=== PATIENT | female | born 1945 | race Caucasian/White ===

== ENCOUNTER 2022-01-01 14:26 | Outpatient (CLI) | payer MEDICARE, OTHER, SELFPAY | END 2022-01-01 14:27 | disposition home or self-care (01) | LOC: WOUND 14:26 | PROVIDERS: PCP Family Medicine; Visit Provider Nurse Practitioner Family | DX: L95.0 Livedoid vasculitis (principal); I87.331 Chronic venous hypertension (idiopathic) with ulcer and inflammation of right lower extremity; L97.815 Non-pressure chronic ulcer of other part of right lower leg with muscle involvement without evidence of necrosis; I87.312 Chronic venous hypertension (idiopathic) with ulcer of left lower extremity; L97.825 Non-pressure chronic ulcer of other part of left lower leg with muscle involvement without evidence of necrosis; L97.529 Non-pressure chronic ulcer of other part of left foot with unspecified severity | CPT/HCPCS: 97597; 97598 ==

== ENCOUNTER 2022-01-09 15:17 | Outpatient (CLI) | payer MEDICARE, OTHER, SELFPAY | END 2022-01-09 15:18 | disposition home or self-care (01) | LOC: WOUND 15:17 | PROVIDERS: PCP Family Medicine; Visit Provider Nurse Practitioner Family | DX: L95.0 Livedoid vasculitis (principal); I87.331 Chronic venous hypertension (idiopathic) with ulcer and inflammation of right lower extremity; L97.815 Non-pressure chronic ulcer of other part of right lower leg with muscle involvement without evidence of necrosis; I87.312 Chronic venous hypertension (idiopathic) with ulcer of left lower extremity; L97.825 Non-pressure chronic ulcer of other part of left lower leg with muscle involvement without evidence of necrosis; L97.529 Non-pressure chronic ulcer of other part of left foot with unspecified severity | CPT/HCPCS: 97597; 97598 ==

== ENCOUNTER 2022-01-14 14:43 | Outpatient (CLI) | payer MEDICARE, OTHER, SELFPAY | END 2022-01-14 14:44 | disposition home or self-care (01) | LOC: WOUND 14:44 | PROVIDERS: PCP Family Medicine; Visit Provider Nurse Practitioner Family | DX: L95.0 Livedoid vasculitis (principal); I87.331 Chronic venous hypertension (idiopathic) with ulcer and inflammation of right lower extremity; L97.815 Non-pressure chronic ulcer of other part of right lower leg with muscle involvement without evidence of necrosis; I87.312 Chronic venous hypertension (idiopathic) with ulcer of left lower extremity; L97.825 Non-pressure chronic ulcer of other part of left lower leg with muscle involvement without evidence of necrosis; L97.529 Non-pressure chronic ulcer of other part of left foot with unspecified severity | CPT/HCPCS: 97597; 97598 ==

== ENCOUNTER 2022-01-21 15:03 | Outpatient (CLI) | payer MEDICARE, OTHER, SELFPAY | END 2022-01-21 15:04 | disposition home or self-care (01) | LOC: WOUND 15:04 | PROVIDERS: PCP Family Medicine; Visit Provider Nurse Practitioner Family | DX: L95.0 Livedoid vasculitis (principal); I87.331 Chronic venous hypertension (idiopathic) with ulcer and inflammation of right lower extremity; I87.312 Chronic venous hypertension (idiopathic) with ulcer of left lower extremity; L97.815 Non-pressure chronic ulcer of other part of right lower leg with muscle involvement without evidence of necrosis; L97.825 Non-pressure chronic ulcer of other part of left lower leg with muscle involvement without evidence of necrosis; L97.319 Non-pressure chronic ulcer of right ankle with unspecified severity; L97.529 Non-pressure chronic ulcer of other part of left foot with unspecified severity | CPT/HCPCS: 11042; 11045; 97597; 97598 ==

== ENCOUNTER 2022-01-28 15:10 | Outpatient (CLI) | payer MEDICARE, OTHER, SELFPAY | END 2022-01-28 15:11 | disposition home or self-care (01) | LOC: WOUND 15:11 | PROVIDERS: PCP Family Medicine; Visit Provider Nurse Practitioner Family | DX: L95.0 Livedoid vasculitis (principal); I87.331 Chronic venous hypertension (idiopathic) with ulcer and inflammation of right lower extremity; L97.815 Non-pressure chronic ulcer of other part of right lower leg with muscle involvement without evidence of necrosis; I87.312 Chronic venous hypertension (idiopathic) with ulcer of left lower extremity; L97.825 Non-pressure chronic ulcer of other part of left lower leg with muscle involvement without evidence of necrosis; L97.529 Non-pressure chronic ulcer of other part of left foot with unspecified severity | CPT/HCPCS: 11042; 11045; 97597; 97598 ==

== ENCOUNTER 2022-02-04 15:04 | Outpatient (CLI) | payer MEDICARE, OTHER, SELFPAY | END 2022-02-04 15:05 | disposition home or self-care (01) | LOC: WOUND 15:04 | PROVIDERS: PCP Family Medicine; Visit Provider Nurse Practitioner Family | DX: L95.0 Livedoid vasculitis (principal); I87.331 Chronic venous hypertension (idiopathic) with ulcer and inflammation of right lower extremity; L97.815 Non-pressure chronic ulcer of other part of right lower leg with muscle involvement without evidence of necrosis; I87.312 Chronic venous hypertension (idiopathic) with ulcer of left lower extremity; L97.825 Non-pressure chronic ulcer of other part of left lower leg with muscle involvement without evidence of necrosis; I83.022 Varicose veins of left lower extremity with ulcer of calf; L97.229 Non-pressure chronic ulcer of left calf with unspecified severity | CPT/HCPCS: 11042; 11045 ==

== ENCOUNTER 2022-02-11 14:56 | Outpatient (CLI) | payer MEDICARE, OTHER, SELFPAY | END 2022-02-11 14:57 | disposition home or self-care (01) | LOC: WOUND 14:57 | PROVIDERS: PCP Family Medicine; Visit Provider Nurse Practitioner Family | DX: L95.0 Livedoid vasculitis (principal); I87.331 Chronic venous hypertension (idiopathic) with ulcer and inflammation of right lower extremity; L97.815 Non-pressure chronic ulcer of other part of right lower leg with muscle involvement without evidence of necrosis; I87.312 Chronic venous hypertension (idiopathic) with ulcer of left lower extremity; L97.825 Non-pressure chronic ulcer of other part of left lower leg with muscle involvement without evidence of necrosis; L97.528 Non-pressure chronic ulcer of other part of left foot with other specified severity | CPT/HCPCS: 97597; 97598 ==

== ENCOUNTER 2022-02-22 18:23 | Emergency (ER) | payer MEDICARE, OTHER, SELFPAY ==
--- NOTE | 2022-02-22 18:30 | CRLHL7_ITS ---
For Patients: As a result of the Century Cures Act, medical imaging exams and procedure reports are released immediately into your electronic medical record. You may view this report before your referring provider. If you have questions, please contact your health care provider. HISTORY: Fall. TECHNIQUE: Noncontrast CT of the cervical spine. COMPARISON: No prior. FINDINGS: There is no acute cervical fracture. There is reversal of the normal cervical doses. Degenerative disc and joint disease present within the cervical spine. No prevertebral soft tissue swelling. - At C1-C2, there are advanced degenerative changes of the articulation of the dens with the anterior arch of C1. At C2-C3, no central canal or foraminal stenosis. At C3-C4, disc-osteophyte complex. Mild ventral thecal sac effacement. Mild right foraminal narrowing. At C4-C5, disc-osteophyte complex. Mild ventral thecal sac effacement. Mild right foraminal narrowing. At C5-C6, disc-osteophyte complex with mild ventral thecal sac effacement. Mild foraminal narrowing. At C6-C7, disc-osteophyte complex. Mild ventral thecal sac effacement. Foramina patent. At C7-T1, no central canal or foraminal stenosis. - Note is made of attenuation of the occipital bone close to the foramen magnum level which may relate to prior craniectomy in that region. IMPRESSION: 1. No acute cervical fracture. 2. Degenerative changes. 3. Mild reversal of the normal cervical lordosis. Dictated by Steve Oquendo MD @ 02/22/2022 7:03:25 PM Please note that all CT scans at this facility use dose modulation, iterative reconstruction, and/or weight-based dosing when appropriate to reduce radiation dose to as low as reasonably achievable. Dictated by: Steve Oquendo MD @ 02/22/2022 19:03:32 (Electronically Signed)
--- NOTE | 2022-02-22 18:30 | CRLHL7_ITS ---
For Patients: As a result of the Century Cures Act, medical imaging exams and procedure reports are released immediately into your electronic medical record. You may view this report before your referring provider. If you have questions, please contact your health care provider. INDICATION: Fall.. TECHNIQUE: CT Head without contrast. COMPARISON: None. FINDINGS: CSF spaces: Within normal limits for age. Brain parenchyma: The smith-white differentiation is normal. No sign of mass, hemorrhage, or midline shift. Skull base and calvarium: The visualized paranasal sinuses and mastoid air cells are clear. The visualized orbits are grossly unremarkable. No skull fractures. . IMPRESSION: Unremarkable noncontrast head CT. Please note that all CT scans at this facility use dose modulation, iterative reconstruction, and/or weight-based dosing when appropriate to reduce radiation dose to as low as reasonably achievable. Dictated by Saurabh Huntley MD @ 02/22/2022 7:11:28 PM (Electronically Signed)
[2022-02-22 18:34] VITALS: BP 116/59; PULSE 74; RESP 12; TEMP 37.1; O2SAT 98; BMI 35.7
[2022-02-22 19:30] VITALS: BP 99/47; PULSE 70; RESP 14; O2SAT 97
[2022-02-22 20:27] VITALS: BP 103/42; PULSE 89; RESP 12; TEMP 37.1
--- NOTE | 2022-02-22 20:43 | ED_ITS ---
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 She was walking today and tripped on an uneven lump in the grass. She fell and struck the back of her head on the ground. She sustained a laceration. She did not have loss of consciousness. She complains of a mild headache, and pain at the area of the laceration. She does not have neck pain. She denies back pain, chest pain, difficulty breathing. She denies any pain in her arms or legs aside from that associated with her chronic pain. She has been mentating normally. Related Data Home Medications Medication Instructions Recorded Confirmed ergocalciferol (vitamin D2) 1,250 50,000 unit PO .Once Weekly 01/13/22 02/10/22 mcg (50,000 unit) capsule gabapentin 300 mg capsule 600 mg PO TID 01/13/22 02/10/22 gentamicin 0.1 % topical ointment 0.1 topical DAILY 01/13/22 02/10/22 ibuprofen 400 mg tablet 400 - 800 mg PO TID PRN 01/13/22 02/10/22 lidocaine HCl 4 % topical liquid ea topical 01/13/22 02/10/22 roll-on Previous Rx's Medication Instructions Recorded ondansetron HCl 8 mg tablet 8 mg PO TID PRN nausea and 01/31/22 vomiting #90 tabs buprenorphine HCl 2 mg sublingual 2 mg sublingual DAILY #14 tabs 02/10/22 tablet buprenorphine HCl 8 mg sublingual 16 mg sublingual DAILY #28 tabs 02/10/22 tablet rivaroxaban 10 mg tablet (Xarelto) 10 mg PO QDAY #90 tabs 02/21/22 Allergies Allergy/AdvReac Type Severity Reaction Status Date / Time ertapenem Allergy Intermediate Swelling/itching Verified 02/10/22 12:03 of lips, tongue, hands prednisone Allergy Intermediate Rash Verified 02/10/22 12:03 clindamycin AdvReac Intermediate Rash Verified 02/10/22 12:03 Iodinated Diagnostic Agents Allergy Intermediate Tightness Uncoded 02/10/22 12:03 in chest, short of breath Penicillin AdvReac Intermediate Rash Uncoded 02/10/22 12:03 Review of Systems Status of ROS: Reports: 10 or more systems reviewed and unremarkable except as noted in History and below [facility] Medical History Encounter for removal of peripherally inserted central catheter (PICC) History of anemia History of basal cell carcinoma (BCC) (2001) History of blood clots History of colonic polyps (2013) Surgical History History of section (1969) History of skin graft (2019) Status post arthroscopy of right shoulder (10/04/05) Status post total abdominal hysterectomy and bilateral salpingo-oophorectomy (12/2004) Social History Smoking Status: Never smoker How often do you have a drink containing alcohol: never AUDIT-C Alcohol total score: 0 Non-prescribed substance use: denies use Exam Narrative: Exam Narrative: Primary survey: Airway: Patent Breathing: Unlabored. Breath sounds equal. Circulation: No active bleeding. Pulses intact. Disability: GCS 15. Vital signs as noted above. In general, an alert, nontoxic elderly woman. Head: Normocephalic. On the posterior scalp, she has a 2.5 cm vertically oriented laceration. No significant surrounding hematoma. Bleeding is controlled. Eyes: Pupils are equal reactive. Extraocular movements are full. Conjunctivae are normal. ENT: Mucous membranes are moist. Throat is normal. No facial trauma. Absent dentition. Neck: Supple without lymphadenopathy. Nontender to palpation. Heart: Regular rate and rhythm. Systolic murmur heard throughout the precordium. Lungs: Clear bilaterally. No increased work of breathing, crackles or wheezes. Abdomen: Soft and nontender. No organomegaly. Back: Nontender to palpation. Atraumatic. Extremities: Bilateral lower extremities are wrapped in Paulie bandages. These were not removed. She does not have any hip or knee tenderness. Full range of motion of the hips noted. Upper extremities are nontender to palpation. No bony bruising or deformity. Neurologic: Patient is alert and oriented to person and place. Speech is fluent. Face is symmetric. Moves all extremities equally. Affect: Normal. Skin: Warm and dry. Well perfused. Const: Vital Signs, click to edit/add: Vital Signs - 24 hr 02/22/22 18:34 02/22/22 20:27 02/22/22 19:30 Temperature 98.7 F 98.7 F Pulse Rate [Pulse Oximeter] 74 89 70 Respiratory Rate 12 12 14 Blood Pressure [Ri ght Upper Arm] 116/59 L 103/42 L 99/47 L Pulse Oximetry 98 97 Oxygen Delivery Me thod Room Air Room Air Documenting provider has reviewed patient's vital signs: yes Course Course Hospital Course: On arrival, Carlos POLLARD was called. I did not feel that she needed full evaluation in terms of lab, EKG, etcetera. She does not have any chest or abdominal complaints, had minor trauma. As such, I did not pursue evaluation beyond head and neck CT. By my review, the head CT was notable for the absence of intracranial hemorrhage. This is read by Radiology as negative as well. Her cervical spine CT is read by Radiology is negative for any acute findings such as fracture or dislocation. Attention was turned to her laceration. I had initially planned to stable this, but she tells me that she had emilia in her abdomen at 1 point and had some sort of contact reaction to them so elected to suture instead. Procedure note: The wound was anesthetized using lidocaine with epinephrine. I explored it. There is no evidence of foreign body. I closed using a total of 5 simple interrupted superficial sutures. I used Prolene because I thought the blue was a little bit easier to find in her hair. She tolerated this well, no immediate complication. Bleeding remains controlled. No significant hematoma. Recommend suture removal at her clinic in 7-10 days. Discussed that she should return for any signs of severe head injury such as severe headache, vomiting, altered mentation, despite the negative head CT. Also return for signs of infection. Vital Signs Vital signs: Initial Vital Signs Temperature 98.7 F 02/22/22 18:34 Temperature Source Temporal Artery Scan 02/22/22 18:34 Pulse Rate 74 02/22/22 18:34 Respiratory Rate 12 02/22/22 18:34 Blood Pressure 116/59 L 02/22/22 18:34 Blood Pressure Mean 78 02/22/22 18:34 Blood Pressure Position Supine 02/22/22 18:34 Pulse Oximetry 98 02/22/22 18:34 Oxygen Delivery Method 02/22/22 18:34 Vital Signs Temperature 98.7 F 02/22/22 18:34 Pulse Rate 74 02/22/22 18:34 Respiratory Rate 12 02/22/22 18:34 Blood Pressure 116/59 L 02/22/22 18:34 Pulse Oximetry 98 02/22/22 18:34 Oxygen Delivery Method 02/22/22 18:34 Temperature 98.7 F 02/22/22 20:27 Pulse Rate 89 02/22/22 20:27 Respiratory Rate 12 02/22/22 20:27 Blood Pressure 103/42 L 02/22/22 20:27 Pulse Oximetry 97 02/22/22 19:30 Oxygen Delivery Method 02/22/22 19:30 Discharge Plan Discharge Clinical Impression: Laceration of scalp Patient Disposition: Home, Self-Care Condition: Improved Instructions: Laceration (ED) Additional Instructions: Suture removal in your clinic in 7-10 days. Return for signs of infection or more serious head injury such as severe headache, vomiting, altered mentation. Prescriptions: No Action buprenorphine HCl 8 mg tablet, sublingual 16 mg sublingual DAILY Qty: 28 0RF buprenorphine HCl 2 mg tablet, sublingual 2 mg sublingual DAILY Qty: 14 0RF gabapentin 300 mg capsule 600 mg PO TID gentamicin 0.1 % ointment 0.1 topical DAILY ergocalciferol (vitamin D2) 1,250 mcg (50,000 unit) capsule 50,000 unit PO .Once Weekly ibuprofen 400 mg tablet 400 - 800 mg PO TID PRN lidocaine HCl 4 % liquid roll-on topical ondansetron HCl 8 mg tablet 8 mg PO TID PRN (Reason: nausea and vomiting) Qty: 90 0RF Xarelto 10 mg tablet 10 mg PO QDAY Qty: 90 1RF Rx Instructions: for 35 days Follow Up/Referrals: Edwin Spicer MD [Primary Care Provider] - Stand Alone Forms: [facility] Info Instructions
== END 2022-02-22 20:33 | disposition home or self-care (01) ==
PROVIDERS: Emergency Provider Emergency Medicine; PCP Family Medicine
DX: S01.01XA Laceration without foreign body of scalp, initial encounter (principal); W18.39XA Other fall on same level, initial encounter; Y93.9 Activity, unspecified; Y92.9 Unspecified place or not applicable; Y99.9 Unspecified external cause status; Z79.01 Long term (current) use of anticoagulants
CPT/HCPCS: 12001; 70450; 72125; 99283; 99284; 99291

== ENCOUNTER 2022-03-04 15:00 | Outpatient (CLI) | payer MEDICARE, OTHER, SELFPAY | END 2022-03-04 15:01 | disposition home or self-care (01) | LOC: WOUND 15:00 | PROVIDERS: PCP Family Medicine; Visit Provider Nurse Practitioner Family | DX: L95.0 Livedoid vasculitis (principal); I87.331 Chronic venous hypertension (idiopathic) with ulcer and inflammation of right lower extremity; I87.312 Chronic venous hypertension (idiopathic) with ulcer of left lower extremity; L97.815 Non-pressure chronic ulcer of other part of right lower leg with muscle involvement without evidence of necrosis; L97.825 Non-pressure chronic ulcer of other part of left lower leg with muscle involvement without evidence of necrosis | CPT/HCPCS: 11042; 11045; 97597; 97598 ==

== ENCOUNTER 2022-03-25 15:05 | Outpatient (CLI) | payer MEDICARE, OTHER, SELFPAY | END 2022-03-25 15:06 | disposition home or self-care (01) | LOC: WOUND 15:05 | PROVIDERS: PCP Family Medicine; Visit Provider Nurse Practitioner Family | DX: L95.0 Livedoid vasculitis (principal); I87.333 Chronic venous hypertension (idiopathic) with ulcer and inflammation of bilateral lower extremity; L97.825 Non-pressure chronic ulcer of other part of left lower leg with muscle involvement without evidence of necrosis; L97.815 Non-pressure chronic ulcer of other part of right lower leg with muscle involvement without evidence of necrosis | CPT/HCPCS: 11042; 11045 ==

== ENCOUNTER 2022-04-08 15:00 | Outpatient (CLI) | payer MEDICARE, OTHER, SELFPAY | END 2022-04-08 15:01 | disposition home or self-care (01) | LOC: WOUND 15:00 | PROVIDERS: PCP Family Medicine; Visit Provider Nurse Practitioner Family | DX: L95.0 Livedoid vasculitis (principal); I87.333 Chronic venous hypertension (idiopathic) with ulcer and inflammation of bilateral lower extremity; L97.825 Non-pressure chronic ulcer of other part of left lower leg with muscle involvement without evidence of necrosis; L97.815 Non-pressure chronic ulcer of other part of right lower leg with muscle involvement without evidence of necrosis; B35.1 Tinea unguium; L60.3 Nail dystrophy | CPT/HCPCS: 11042; 11043; 11045; 11046; 11720; 11721 ==

== ENCOUNTER 2022-04-15 15:13 | Outpatient (CLI) | payer MEDICARE, OTHER, SELFPAY | END 2022-04-15 15:14 | disposition home or self-care (01) | LOC: WOUND 15:14 | PROVIDERS: PCP Family Medicine; Visit Provider Nurse Practitioner Family | DX: L95.0 Livedoid vasculitis (principal); I87.313 Chronic venous hypertension (idiopathic) with ulcer of bilateral lower extremity; L97.815 Non-pressure chronic ulcer of other part of right lower leg with muscle involvement without evidence of necrosis; L97.825 Non-pressure chronic ulcer of other part of left lower leg with muscle involvement without evidence of necrosis | CPT/HCPCS: 11042; 11045; 97602; 99070 ==

== ENCOUNTER 2022-04-16 20:48 | Emergency (ER) | payer MEDICARE, OTHER, SELFPAY ==
[2022-04-16 20:57] VITALS: RESP 18; RESP 20; O2SAT 99
[2022-04-16 21:00] VITALS: BP 155/78; PULSE 89; RESP 18; TEMP 36.7; O2SAT 99; BMI 36.4
--- NOTE | 2022-04-16 21:13 | ED.GENADULT ---
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 Is also treated for chronic pain with 8 mg of buprenorphine per day. She has not had any fever. It is now been more than 24 hours since maggots were placed. She notes a history of reaction to stockings as well which she believes are exacerbating her pain. These stockings were placed to contain the maggots. She also took some ibuprofen today. Related Data Home Medications Medication Instructions Recorded Confirmed ergocalciferol (vitamin D2) 1,250 50,000 unit PO .Once Weekly 01/13/22 02/24/22 mcg (50,000 unit) capsule gabapentin 300 mg capsule 600 mg PO TID 01/13/22 02/24/22 gentamicin 0.1 % topical ointment 0.1 topical DAILY 01/13/22 02/24/22 ibuprofen 400 mg tablet 400 - 800 mg PO TID PRN 01/13/22 02/24/22 Previous Rx's Medication Instructions Recorded rivaroxaban 10 mg tablet (Xarelto) 10 mg PO QDAY #90 tabs 02/21/22 lidocaine HCl 4 % topical liquid See Rx Instructions topical 03/12/22 roll-on .COMPLEX #73 mL ondansetron 8 mg disintegrating 8 mg PO TID PRN nausea and 03/17/22 tablet vomiting #90 tabs buprenorphine HCl 2 mg sublingual 2 mg sublingual DAILY #28 tabs 04/07/22 tablet buprenorphine HCl 8 mg sublingual 16 mg sublingual DAILY #56 tabs 04/07/22 tablet oxycodone 5 mg tablet 5 mg PO Q8H PRN pain #30 tabs 04/18/22 Allergies Allergy/AdvReac Type Severity Reaction Status Date / Time ertapenem Allergy Intermediate Swelling/itching Verified 04/07/22 11:48 of lips, tongue, hands prednisone Allergy Intermediate Rash Verified 04/07/22 11:48 clindamycin AdvReac Intermediate Rash Verified 04/07/22 11:48 Iodinated Diagnostic Agents Allergy Intermediate Tightness Uncoded 04/07/22 11:48 in chest, short of breath Penicillin AdvReac Intermediate Rash Uncoded 04/07/22 11:48 Review of Systems Status of ROS: Reports: 6 or more systems reviewed and unremarkable except as noted in History and below [facility] Medical History Anemia of chronic disease Arnold-Chiari malformation Encounter for removal of peripherally inserted central catheter (PICC) Fibromyalgia GERD (gastroesophageal reflux disease) History of anemia History of basal cell carcinoma (BCC) (2001) History of blood clots History of blood clots History of colonic polyps (2013) Opioid use disorder HONG (obstructive sleep apnea) Pancreatic mass Peripheral neuropathy Renal cell carcinoma Sarcoidosis Sicca syndrome, Sjogren's Simple hepatic cyst Stage 4 chronic kidney disease Vitamin D deficiency Surgical History History of section (1969) History of section History of skin graft (2019) History of skin graft Status post arthroscopy of right shoulder (10/04/05) Status post arthroscopy of right shoulder Status post total abdominal hysterectomy and bilateral salpingo-oophorectomy (12/2004) Status post total abdominal hysterectomy and bilateral salpingo-oophorectomy ([facility]) Social History Smoking Status: Never smoker Do you use any of these nicotine containing products: None Second hand tobacco smoke exposure: No How often do you have a drink containing alcohol: never AUDIT-C Alcohol total score: 0 Non-prescribed substance use: denies use Exam Narrative: Exam Narrative: Pleasant. NAD. Here with . She is seated in a wheelchair. Thing easily. Lower legs bilaterally are wrapped with soft gauze wraps and pad taped on. Underneath which there is stocking dressing. Ulcers are visible through the stocking. Removal of the stockings accomplished with soaking. Maggots are present and active. I do not see secondary sign of infection/bright erythema. Const: Vital Signs, click to edit/add: Vital Signs - 24 hr 04/16/22 21:00 04/16/22 20:57 Temperature 98.0 F Pulse Rate [Right Pulse Oximeter] 89 Respiratory Rate 18 Respiratory Rate [ Left Foot] 20 Respiratory Rate [ Right Foot] 18 Blood Pressure [Ri ght Forearm] 155/78 H Pulse Oximetry 99 Oxygen Delivery Me thod Room Air Documenting provider has reviewed patient's vital signs: yes Course Reevaluation(s) Reevaluation #1: Dressings removed and is removed. Irrigated. Redressed. Ms. Sutherland appears to be much more comfortable. Consultations Consultation #1: I did discuss with our hospitalist was extensive experience in wound care. At this point we will go ahead and remove dressings and maggots as these seem to be causing some degree of distress. Vital Signs Vital signs: Initial Vital Signs Respiratory Rate 18 04/16/22 20:57 Vital Signs Respiratory Rate 18 04/16/22 20:57 Temperature 98.0 F 04/16/22 21:00 Pulse Rate 89 04/16/22 21:00 Respiratory Rate 18 04/16/22 21:00 Blood Pressure 155/78 H 04/16/22 21:00 Pulse Oximetry 99 04/16/22 21:00 Oxygen Delivery Method 04/16/22 21:00 Medical Decision Making MDM Narrative Medical decision making narrative: Once generally are quite clean. Appears that maggots have done their job in the amount of time they have been on. Discharge Plan Discharge Clinical Impression: Leg pain, Encounter for wound care Patient Disposition: Home w/ Parent or Adult Condition: Improved Additional Instructions: Please follow-up this week if possible in wound care clinic. Otherwise continue with usual regular dressing changes Prescriptions: No Action buprenorphine HCl 2 mg tablet, sublingual 2 mg sublingual DAILY Qty: 28 0RF buprenorphine HCl 8 mg tablet, sublingual 16 mg sublingual DAILY Qty: 56 0RF gabapentin 300 mg capsule 600 mg PO TID gentamicin 0.1 % ointment 0.1 topical DAILY ergocalciferol (vitamin D2) 1,250 mcg (50,000 unit) capsule 50,000 unit PO .Once Weekly ibuprofen 400 mg tablet 400 - 800 mg PO TID PRN Xarelto 10 mg tablet 10 mg PO QDAY Qty: 90 1RF Rx Instructions: for 35 days lidocaine HCl 4 % liquid roll-on See Rx Instructions topical .COMPLEX Qty: 73 3RF Rx Instructions: 1 application BID topically; ondansetron 8 mg tablet,disintegrating 8 mg PO TID PRN (Reason: nausea and vomiting) Qty: 90 2RF oxycodone 5 mg tablet 5 mg PO Q8H PRN (Reason: pain) Qty: 30 0RF Follow Up/Referrals: Edwin Spicer MD [Primary Care Provider] - Stand Alone Forms: [employer] Info Instructions
[2022-04-16] MEDS: lidocaine HCL 4 % TOP SOLN 50 ML BOTTLE TOPICAL ×2 (22:49)
--- NOTE | 2022-04-16 23:14 | ED.NURSE ---
wounds covered with 4% lidocaine for 5 minutes, then sterile water soaked, dressing removed bilaterally, all maggots removed and cleaned with sterile water, vashe applied for 10 minutes, removed and wrapped. all wound care per pt routine.
== END 2022-04-16 23:19 | disposition home or self-care (01) ==
PROVIDERS: Emergency Provider Family Medicine; PCP Family Medicine
DX: Z48.00 Encounter for change or removal of nonsurgical wound dressing (principal); I87.333 Chronic venous hypertension (idiopathic) with ulcer and inflammation of bilateral lower extremity
CPT/HCPCS: 99283; A9270

== ENCOUNTER 2022-04-22 15:11 | Outpatient (CLI) | payer MEDICARE, OTHER, SELFPAY | END 2022-04-22 15:12 | disposition home or self-care (01) | LOC: MRI 15:12 | PROVIDERS: PCP Family Medicine; Visit Provider Nurse Practitioner Family | DX: L95.0 Livedoid vasculitis (principal); I83.018 Varicose veins of right lower extremity with ulcer other part of lower leg; I83.028 Varicose veins of left lower extremity with ulcer other part of lower leg; L97.815 Non-pressure chronic ulcer of other part of right lower leg with muscle involvement without evidence of necrosis; L97.825 Non-pressure chronic ulcer of other part of left lower leg with muscle involvement without evidence of necrosis | CPT/HCPCS: 11042; 11045 ==

== ENCOUNTER 2022-04-23 13:42 | Outpatient (CLI) | payer MEDICARE, OTHER, SELFPAY ==
--- NOTE | 2022-04-23 13:45 | CRLHL7_ITS ---
For Patients: As a result of the Century Cures Act, medical imaging exams and procedure reports are released immediately into your electronic medical record. You may view this report before your referring provider. If you have questions, please contact your health care provider. HISTORY: Right lower extremity nonhealing wound. Pain. TECHNIQUE: Noncontrast MRI of the right lower leg. COMPARISON: No prior. FINDINGS: There are soft tissue wounds involving the right lower leg. Subcutaneous signal abnormality may relate to edema and/or cellulitis. There is no subcutaneous or deeper fluid collection. No osteomyelitis of the included portion of right tibia or fibula. There are degenerative changes within the foot. IMPRESSION: 1. Soft tissue wound involving the right lower leg. 2. Subcutaneous signal abnormality which may relate to edema and/or cellulitis. 3. No localized subcutaneous or deeper soft tissue fluid collection. 4. No osteomyelitis. Dictated by Steve Oquendo MD @ 04/24/2022 12:14:41 PM (Electronically Signed)
--- NOTE | 2022-04-23 14:30 | CRLHL7_ITS ---
For Patients: As a result of the Century Cures Act, medical imaging exams and procedure reports are released immediately into your electronic medical record. You may view this report before your referring provider. If you have questions, please contact your health care provider. HISTORY: Left lower extremity nonhealing wound. Pain. TECHNIQUE: Noncontrast MRI of the left lower leg. COMPARISON: No prior. FINDINGS: There are soft tissue wounds involving the left lower leg. Subcutaneous signal abnormality may relate to edema and/or cellulitis. There is no subcutaneous or deeper fluid collection. No osteomyelitis of the included portion of left tibia or fibula. There are degenerative changes within the foot. IMPRESSION: 1. Soft tissue wound involving the left lower leg. 2. Subcutaneous signal abnormality which may relate to edema and/or cellulitis. 3. No localized subcutaneous or deeper soft tissue fluid collection. 4. No osteomyelitis. Dictated by Steve Oquendo MD @ 04/24/2022 12:12:57 PM (Electronically Signed)
== END 2022-04-23 13:43 | disposition home or self-care (01) ==
PROVIDERS: PCP Family Medicine; Visit Provider Nurse Practitioner Family
DX: L97.929 Non-pressure chronic ulcer of unspecified part of left lower leg with unspecified severity (principal); L97.919 Non-pressure chronic ulcer of unspecified part of right lower leg with unspecified severity; M35.00 Sjogren syndrome, unspecified
CPT/HCPCS: 73718

== ENCOUNTER 2022-05-07 08:55 | Emergency (ER) | payer MEDICARE, OTHER, SELFPAY ==
[2022-05-07 10:09] VITALS: BP 125/86; PULSE 102; RESP 18; TEMP 36.6; O2SAT 95; BMI 36.4
--- NOTE | 2022-05-07 10:31 | ED.LOWEXIN ---
HPI - Extremity Injury (Lower) General Time Seen by Provider: 10:32 Date Seen: 05/07/22 Chief Complaint: Extremity Pain/Injury, Lower Stated Complaint: pain in feet Time Seen by Provider: 05/07/22 10:31 Source: patient, RN notes reviewed and old records reviewed Mode of arrival: wheelchair Limitations: no limitations History of Present Illness HPI Narrative: Patient is a 77-year-old female with a history of chronic lower extremity, poorly healing wounds not currently on antibiotics who comes to the emergency room requesting oxycodone. Patient states that Dr. Spicer has given her oxycodone and that he stated he would not be able to do it today and to come to the emergency room. She notes no fever or chills and [facility]. She notes that she is in intense pain in needs oxycodone right away. She refuses to let me unwrap her legs. She denies fever or chills. She denies any new problems with her legs. Related Data Home Medications Medication Instructions Recorded Confirmed ergocalciferol (vitamin D2) 1,250 50,000 unit PO .Once Weekly 01/13/22 02/24/22 mcg (50,000 unit) capsule gabapentin 300 mg capsule 600 mg PO TID 01/13/22 02/24/22 gentamicin 0.1 % topical ointment 0.1 topical DAILY 01/13/22 02/24/22 ibuprofen 400 mg tablet 400 - 800 mg PO TID PRN 01/13/22 02/24/22 Previous Rx's Medication Instructions Recorded rivaroxaban 10 mg tablet (Xarelto) 10 mg PO QDAY #90 tabs 02/21/22 lidocaine HCl 4 % topical liquid See Rx Instructions topical 03/12/22 roll-on .COMPLEX #73 mL ondansetron 8 mg disintegrating 8 mg PO TID PRN nausea and 03/17/22 tablet vomiting #90 tabs oxycodone 5 mg tablet 5 mg PO Q8H PRN pain #30 tabs 04/24/22 buprenorphine HCl 2 mg sublingual 2 mg sublingual DAILY #14 tabs 05/05/22 tablet buprenorphine HCl 8 mg sublingual 16 mg sublingual DAILY #28 tabs 05/05/22 tablet Allergies Allergy/AdvReac Type Severity Reaction Status Date / Time ertapenem Allergy Intermediate Swelling/itching Verified 04/07/22 11:48 of lips, tongue, hands prednisone Allergy Intermediate Rash Verified 04/07/22 11:48 clindamycin AdvReac Intermediate Rash Verified 04/07/22 11:48 Iodinated Diagnostic Agents Allergy Intermediate Tightness Uncoded 04/07/22 11:48 in chest, short of breath Penicillin AdvReac Intermediate Rash Uncoded 04/07/22 11:48 Review of Systems Narrative: No fever, no chills, no increasing symptoms of the lower extremities. [facility] Medical History Anemia of chronic disease Arnold-Chiari malformation Encounter for removal of peripherally inserted central catheter (PICC) Fibromyalgia GERD (gastroesophageal reflux disease) History of anemia History of basal cell carcinoma (BCC) (2001) History of blood clots History of blood clots History of colonic polyps (2013) Opioid use disorder HONG (obstructive sleep apnea) Pancreatic mass Peripheral neuropathy Renal cell carcinoma Sarcoidosis Sicca syndrome, Sjogren's Simple hepatic cyst Stage 4 chronic kidney disease Vitamin D deficiency Surgical History History of section (1969) History of section History of skin graft (2019) History of skin graft Status post arthroscopy of right shoulder (10/04/05) Status post arthroscopy of right shoulder Status post total abdominal hysterectomy and bilateral salpingo-oophorectomy (12/2004) Status post total abdominal hysterectomy and bilateral salpingo-oophorectomy (KATE-BSO) Social History Smoking Status: Never smoker Do you use any of these nicotine containing products: None Second hand tobacco smoke exposure: No How often do you have a drink containing alcohol: never AUDIT-C Alcohol total score: 0 Non-prescribed substance use: denies use Exam Narrative: Exam Narrative: Patient is alert and oriented. She is frequently outside the room stating that the room gives her claustrophobia. Her accompanies her and is very loving and supportive in quiet. Patient has no respiratory distress. She is very dramatic in appearance. She is not consistent in her story with me today. She will not allow me to on rule the gauze on her legs. She states that she was told that she should not do that and allow terms to get into the wounds. I do offer to change to new dressings but again she declines. She is not tremulous. She is not vomiting. She is nontoxic in appearance. Const: Vital Signs, click to edit/add: Vital Signs - 24 hr 05/07/22 10:09 Temperature 97.8 F Pulse Rate [Right Pulse Oximeter] 102 H Respiratory Rate 18 Blood Pressure [Ri ght Upper Arm] 125/86 Pulse Oximetry 95 Oxygen Delivery Me thod Room Air Documenting provider has reviewed patient's vital signs: yes Course Course Hospital Course: Checking records it does appear that patient is is supposed to be on Suboxone. I have a note from . I do ask Rohini about that and she states that she had to cancel that appointment. She denies being on Suboxone and states she has not taken that in quite some time. I do recheck and indeed doctor is in a cough did see this patient but it was via phone. Patient then states that she thought I meant that she had been in the clinic. She repeatedly asked me for oxycodone stating that she is feeling very bad and I state that I will not be giving her any oxycodone today and that she needs to restart on her Suboxone. Vital Signs Vital signs: Initial Vital Signs Temperature 97.8 F 05/07/22 10:09 Temperature Source Temporal Artery Scan 05/07/22 10:09 Pulse Rate 102 H 05/07/22 10:09 Pulse Rhythm 05/07/22 10:09 Respiratory Rate 18 05/07/22 10:09 Blood Pressure 125/86 05/07/22 10:09 Blood Pressure Mean 99 05/07/22 10:09 Blood Pressure Position Sitting 05/07/22 10:09 Pulse Oximetry 95 05/07/22 10:09 Oxygen Delivery Method 05/07/22 10:09 Vital Signs Temperature 97.8 F 05/07/22 10:09 Pulse Rate 102 H 05/07/22 10:09 Respiratory Rate 18 05/07/22 10:09 Blood Pressure 125/86 05/07/22 10:09 Pulse Oximetry 95 05/07/22 10:09 Oxygen Delivery Method 05/07/22 10:09 Temperature 97.8 F 05/07/22 10:09 Pulse Rate 102 H 05/07/22 10:09 Respiratory Rate 18 05/07/22 10:09 Blood Pressure 125/86 05/07/22 10:09 Pulse Oximetry 95 05/07/22 10:09 Oxygen Delivery Method 05/07/22 10:09 MDM - Extremity Injury (Lower) MDM Narrative Medical decision making narrative: 1. Chronic lower extremity edema and poorly healing wounds-patient is post with the wound clinic weekly. I offered to be an advocate for her and make sure she gets in this week but she is adamant that she will make the call and does not want me to be involved. At this time she has no fever or chills. She continues to declined my offer to unwrap her legs because I would like to look to make sure that she does not need an antibiotic. Again she declines. 2. Chronic pain behavior-patient has not been entirely forthcoming in regards to her use or prescription for Suboxone. When I declined the use of oxycodone her demeanor does change in she is very pleasant and anxious to leave here. Pain behavior does seem to be improved greatly. I offered to give her a dose of Suboxone here but she states that she cannot take the film and only pills. I do offer to check to see if we have the pills here but she does not want to do that. She adamantly denies that she has taken any Suboxone today. They are anxious to get to the [facility] pharmacy in [place] in order to hand picker her prescription which was called in on Thursday. 3. Disposition-patient depart the ED. This patient should not be given any narcotics out of our ED as she is already on Suboxone daily. Her behavior today is chronic pain behavior. I was able to contact Dr. Spicer in regards to this patient. Medical Records Attestation: I reviewed the patient's medical records. Discharge Plan Discharge Clinical Impression: Chronic pain disorder Patient Disposition: Home w/ Parent or Adult Condition: Unchanged Additional Instructions: Restart your Suboxone as directed by Dr. Burnett. Follow-up with wound care center on a weekly basis Return to the emergency room for increasing infection, fever and as needed. Prescriptions: No Action buprenorphine HCl 2 mg tablet, sublingual 2 mg sublingual DAILY Qty: 14 0RF buprenorphine HCl 8 mg tablet, sublingual 16 mg sublingual DAILY Qty: 28 0RF gabapentin 300 mg capsule 600 mg PO TID gentamicin 0.1 % ointment 0.1 topical DAILY ergocalciferol (vitamin D2) 1,250 mcg (50,000 unit) capsule 50,000 unit PO .Once Weekly ibuprofen 400 mg tablet 400 - 800 mg PO TID PRN Xarelto 10 mg tablet 10 mg PO QDAY Qty: 90 1RF Rx Instructions: for 35 days lidocaine HCl 4 % liquid roll-on See Rx Instructions topical .COMPLEX Qty: 73 3RF Rx Instructions: 1 application BID topically; ondansetron 8 mg tablet,disintegrating 8 mg PO TID PRN (Reason: nausea and vomiting) Qty: 90 2RF oxycodone 5 mg tablet 5 mg PO Q8H PRN (Reason: pain) Qty: 30 0RF Follow Up/Referrals: Edwin Spicer MD [Primary Care Provider] - Stand Alone Forms: My[facility] Info Instructions
--- NOTE | 2022-05-07 11:09 | ED.NURSE ---
pt sitting in wheelchair. dr. dominguez talked to pt and spouse and pt was dc'd. brought pt to vehicle via wheelchair.
== END 2022-05-07 11:08 | disposition home or self-care (01) ==
PROVIDERS: Emergency Provider Family Medicine; PCP Family Medicine
DX: M79.661 Pain in right lower leg (principal); M79.662 Pain in left lower leg; G89.29 Other chronic pain; D63.1 Anemia in chronic kidney disease; N18.4 Chronic kidney disease, stage 4 (severe); Z86.718 Personal history of other venous thrombosis and embolism; Z79.01 Long term (current) use of anticoagulants; R60.0 Localized edema; Z88.8 Allergy status to other drugs, medicaments and biological substances; Z88.0 Allergy status to penicillin
CPT/HCPCS: 99283

== ENCOUNTER 2022-05-14 11:26 | Outpatient (CLI) | payer MEDICARE, OTHER, SELFPAY ==
[2022-05-14 14:10] LABS: Basophils Absolute Auto 0.04 K/uL (0.00-0.30); Basophils Percent Auto 0.4 % (0.0-3.0); Eosinophils Absolute Auto 0.16 K/uL (0.00-0.50); Eosinophils Percent Auto 1.7 % (0.0-7.0); Hematocrit 24.2 % (33.0-51.0); Immature Granulocytes Abs Auto 0.08 K/uL (0.00-0.30); Immature Granulocytes Pct Auto 0.8 %; Lymphocytes Percent Auto 10.4 % (20-44); Mean Corpuscular HGB Conc 30 gm/dL (32-36); Mean Corpuscular Hemoglobin 24 pg (26-34); Mean Corpuscular Volume 80 fL (80-100); Monocytes Percent Auto 7.8 % (0.0-11.0); Neutrophils Percent Auto 78.9 % (42.0-72.0); Platelet Count* 530 K/uL (140-440); RDW Coefficient of Variation % 16.9 % (11.5-15.5); Red Blood Count 3.02 m/uL (4.00-5.20); White Blood Count* 9.54 K/uL (4.50-11.00)
[2022-05-14 14:34] LABS: Albumin* 2.3 g/dL (3.3-5.0); Chloride* 103 mmol/L (96-114)
[2022-05-14 14:35] LABS: Potassium* 4.3 mmol/L (3.6-5.1); Sodium* 133 mmol/L (135-149)
[2022-05-14 14:37] LABS: Aspartate Amino Transferase* 17 U/L (12-35); Carbon Dioxide* 24 mmol/L (20-32); Creatinine* 1.3 mg/dL (0.5-1.5); Estimated Glomerular Filt Rate 43 ml/min
[2022-05-14 14:38] LABS: Alanine Aminotransferase* 12 U/L (4-35); Alkaline Phosphatase* 67 U/L (40-150); Blood Urea Nitrogen* 29 mg/dL (7-30); Calcium* 8.1 mg/dL (8.4-10.6); Glucose* 148 mg/dL (60-115); Magnesium* 1.7 mg/dL (1.5-2.6); Total Protein* 5.4 g/dL (6.0-8.3)
[2022-05-14 14:41] LABS: Bilirubin Total* < 0.1 mg/dL (0.1-1.5)
[2022-05-14 14:42] LABS: Hemoglobin* 7.3 gm/dL (12.0-16.0)
[2022-05-14 15:05] LABS: Ferritin* 61.5 ng/mL (11.1-264.0)
[2022-05-14 15:16] LABS: Slide Review Reflex No
== END 2022-05-14 11:27 | disposition home or self-care (01) ==
PROVIDERS: PCP Family Medicine; Visit Provider Family Medicine
DX: E83.42 Hypomagnesemia (principal); D63.8 Anemia in other chronic diseases classified elsewhere; E86.0 Dehydration
CPT/HCPCS: 80053; 82728; 83735; 85025

== ENCOUNTER 2022-05-27 15:03 | Outpatient (CLI) | payer MEDICARE, OTHER, SELFPAY | END 2022-05-27 15:04 | disposition home or self-care (01) | LOC: WOUND 15:03 | PROVIDERS: PCP Family Medicine; Visit Provider Nurse Practitioner Family | DX: L95.0 Livedoid vasculitis (principal); L97.815 Non-pressure chronic ulcer of other part of right lower leg with muscle involvement without evidence of necrosis; L97.825 Non-pressure chronic ulcer of other part of left lower leg with muscle involvement without evidence of necrosis | CPT/HCPCS: 11042; 11043; 11045; 11046 ==

== ENCOUNTER 2022-12-11 12:24 | Outpatient (REF) | payer MEDICARE, OTHER, SELFPAY ==
[2022-12-11 15:51] LABS: Basophils Absolute Auto 0.04 K/uL (0.00-0.30); Basophils Percent Auto 0.7 % (0.0-3.0); Eosinophils Absolute Auto 0.34 K/uL (0.00-0.50); Hematocrit 30.8 % (33.0-51.0); Hemoglobin* 9.4 gm/dL (12.0-16.0); Immature Granulocytes Abs Auto 0.01 K/uL (0.00-0.30); Immature Granulocytes Pct Auto 0.2 %; Lymphocytes Absolute Auto 1.53 K/uL (0.90-2.90); Mean Corpuscular HGB Conc 31 gm/dL (32-36); Mean Corpuscular Hemoglobin 27 pg (26-34); Mean Corpuscular Volume 88 fL (80-100); Monocytes Percent Auto 8.8 % (0.0-11.0); Neutrophils Absolute Auto 3.24 K/uL (1.7-7.0); Neutrophils Percent Auto 57.3 % (42.0-72.0); Platelet Count* 400 K/uL (140-440); Red Blood Count 3.52 m/uL (4.00-5.20); White Blood Count* 5.66 K/uL (4.50-11.00)
[2022-12-11 15:52] LABS: Slide Review Reflex No
[2022-12-11 15:55] LABS: Chloride* 105 mmol/L (96-114)
[2022-12-11 15:56] LABS: Potassium* 3.7 mmol/L (3.6-5.1); Sodium* 138 mmol/L (135-149)
[2022-12-11 15:58] LABS: Creatinine* 1.5 mg/dL (0.5-1.5); Estimated Glomerular Filt Rate 36 ml/min
[2022-12-11 15:59] LABS: Blood Urea Nitrogen* 17 mg/dL (7-30); Calcium* 8.8 mg/dL (8.4-10.6); Carbon Dioxide* 27 mmol/L (20-32); Glucose* 83 mg/dL (60-115)
[2022-12-11 16:57] LABS: Ferritin* 53.4 ng/mL (11.1-264.0)
== END 2022-12-11 12:25 | disposition home or self-care (01) ==
LOC: NPINS 12:24
PROVIDERS: PCP Family Medicine; Visit Provider Family Medicine
DX: D64.9 Anemia, unspecified (principal)
CPT/HCPCS: 80048; 82728; 85025